=== PATIENT | male | born 2000 | race Two or more races ===

== ENCOUNTER 2024-12-27 11:13 | Emergency (ER) | payer OTHER ==
[~2024-12-27] VITALS: Ht 177.8 cm; Wt 86.2 kg
[2024-12-27] MEDS ORDERED: KETOROLAC TROMETHAMINE 60 MG VIAL IM ONE ×2 (13:15→14:02)
[2024-12-27] MEDS ORDERED: DEXAMETHASONE SODIUM PHOSPHATE 4 MG/ML VIAL IM ONE (13:15)
[2024-12-27] MEDS ORDERED: CEFTRIAXONE SODIUM 1,000 MG VIAL IM ONE (13:15)
[2024-12-27] MEDS ORDERED: CEFTRIAXONE SODIUM 1,000 MG VIAL ONE (14:02)
[2024-12-27] MEDS ORDERED: DEXAMETHASONE SODIUM PHOSPHATE 4 MG/ML VIAL ONE (14:02)
[2024-12-27 14:57] LABS: BASO % 0.6 % (0.1-1.2); EOS # 0.33 (0.04-0.54); EOS % 3.5 % (0.7-7.0); LYMPH # 2.87 (1.18-3.74); LYMPH % 30.5 % (19.3-53.1); MEAN PLATELET VOLUME 9.80 fl (9.4-12.4); MONO # 0.98 (0.24-0.82); MONO % 10.4 % (4.7-12.5); NEUT # 5.13 (1.56-6.13); NEUT % 54.7 % (34.0-71.1); RED CELL DISTRIBUTION WIDTH 12.5 % (11.6-14.4)
[2024-12-27] MEDS ORDERED: CORTISONE60 GM TOP (15:59)
[2024-12-27] MEDS ORDERED: ALLERGY RELIEF10 M3 PO (15:59)
[2024-12-27 16:06] VITALS: BP 130/87; O2SAT 97
== END 2024-12-27 16:07 | disposition home or self-care (01) ==
LOC: ER 11:13
DX: M79.672 Pain in left foot (principal); I10 Essential (primary) hypertension